=== PATIENT | male | born 1995 | race Caucasian/White ===

== ENCOUNTER 2018-12-01 07:22 | Observation (INO) | payer MEDICAID, OTHER ==
[~2018-12-01] VITALS: Ht 182.9 cm; Wt 72.5 kg
[2018-12-01 07:49] LABS: BASOPHILS # (AUTO) 0.02 x10^3/uL (0-0.1); BASOPHILS % (AUTO) 0 % (0-1); EOSINOPHILS # (AUTO) 0.16 x10^3/uL (0-0.4); EOSINOPHILS % (AUTO) 2 % (1-7); LYMPHOCYTES # (AUTO) 2.31 x10^3/uL (1-3.4); LYMPHOCYTES % (AUTO) 23 % (22-44); MD NO; MEAN CORPUSCULAR HEMOGLOBIN 31.3 pg (27.5-34.5); MEAN CORPUSCULAR HGB CONC 34.2 g/dL (33.2-36.2); MEAN CORPUSCULAR VOLUME 91.6 fL (81-97); MEAN PLATELET VOLUME 8.1 fL (7.4-10.4); MONOCYTES % (AUTO) 5 % (2-9); NEUTROPHILS # (AUTO) 7.16 x10^3/uL (1.8-6.8); NEUTROPHILS % (AUTO) 71 % (42-75); PLATELET COUNT 381 x10^3/uL (130-400); RED BLOOD COUNT 4.66 x10^6/uL (4.38-5.82)
[2018-12-01] MEDS ORDERED: KETOROLAC 30 MG/1 ML ONE (08:00)
[2018-12-01] MEDS ORDERED: KETOROLAC 30 MG/1 ML IM ONE (08:00)
[2018-12-01] MEDS ORDERED: PLEASE ENTER ALLERGIES MC SCH (08:00)
[2018-12-01 08:01] LABS: ANION GAP 6 mmol/L (5-15); CALCIUM 8.9 mg/dL (8.5-10.1); CHLORIDE 109 mmol/L (98-107); CREATININE 1.09 mg/dL (0.7-1.3)
[2018-12-01 08:04] LABS: TROPONIN I < 0.015 ng/mL (0.000-0.045)
[2018-12-01] MEDS: NALOXONE 0.4 MG/ML, 1ML IVPush PRN ×2 (08:24→09:40)
[2018-12-01] MEDS ORDERED: KETOROLAC 30 MG/1 ML IVPush ONE (08:30)
--- NOTE | 2018-12-01 08:46 | NUR ---
pt had period of de sat to 80 on ra. 2 lpm nc placed and 0.4 narcan admin per order.
--- NOTE | 2018-12-01 09:34 | NUR ---
pt resps at 6 bpm o2 at 2 lpm via nc. provider made aware.
--- NOTE | 2018-12-01 09:40 | NUR ---
NARCAN ADMIN PER ORDER. RESP NOW INCREASED TO 12 PER MINUTE.
--- NOTE | 2018-12-01 11:54 | NUR ---
pt placed back on 1 lpm nc due to ra of 85 while sleeping.
[2018-12-01] MEDS ORDERED: NALOXONE 0.4 MG/ML, 1ML ONE (12:36)
--- NOTE | 2018-12-01 12:52 | NUR ---
pt resting in bed. on 0.25 lpm of 02 via nc. resps even and unlabored. rate of 12 bpm
--- NOTE | 2018-12-01 13:40 | NUR ---
assumed care of pt while primary rn on lunch. pt eating lunch and awake. hospitalist at bedside. received bed and will call report.
--- NOTE | 2018-12-01 13:56 | NUR ---
report called to ebenezer cash. pt will then be transferred to the floor.
[2018-12-01] MEDS: NICOTINE 21 MG/24 HR PATCH.TD24 TD SCH (14:00)
[2018-12-01] MEDS ORDERED: ACETAMINOPHEN 325 MG TABLET PO PRN (14:00)
[2018-12-01] MEDS ORDERED: POLYETHYLENE GLYCOL 17 GM PACKET PO PRN (14:00)
[2018-12-01] MEDS ORDERED: LIDODERM 5% PATCH TD PRN (14:00)
[2018-12-01] MEDS ORDERED: ONDANSETRON 2MG/ML, 2ML IVPush PRN (14:00)
[2018-12-01] MEDS ORDERED: ONDANSETRON ODT 4 MG PO PRN (14:00)
[2018-12-01] MEDS ORDERED: TEMAZEPAM 15 MG CAPSULE PO PRN (14:00)
[2018-12-01] MEDS ORDERED: BISACODYL 10 MG SUPP PR PRN (14:00)
[2018-12-01] MEDS ORDERED: hydrALAzine 20 MG/ML, 1ML IVPush PRN (14:00)
[2018-12-01] MEDS ORDERED: KETOROLAC 30 MG/1 ML IV PRN (14:00)
[2018-12-01] MEDS ORDERED: DOCUSATE 100 MG CAPSULE PO PRN (14:00)
--- NOTE | 2018-12-01 14:02 | NUR ---
change of bed status. pt will go to med tele instead of medical. awaiting bed.
[2018-12-01 14:22] LABS: HCT (SEDRATE) 45.8 % (39.2-51.8)
[2018-12-01 14:28] LABS: ANION GAP 6 mmol/L (5-15); CHLORIDE 107 mmol/L (98-107); CREATININE 0.98 mg/dL (0.7-1.3)
[2018-12-01] MEDS ORDERED: CLINDAMYCIN 300 MG CAPSULE PO SCH (14:30)
[2018-12-01 14:32] LABS: FREE T4 (FREE THYROXINE) 0.84 ng/dL (0.76-1.46); TROPONIN I 0.015 ng/mL (0.000-0.045)
[2018-12-01 14:35] LABS: BASOPHILS # (AUTO) 0.04 x10^3/uL (0-0.1); BASOPHILS % (AUTO) 0 % (0-1); EOSINOPHILS # (AUTO) 0.06 x10^3/uL (0-0.4); EOSINOPHILS % (AUTO) 1 % (1-7); LYMPHOCYTES # (AUTO) 2.14 x10^3/uL (1-3.4); LYMPHOCYTES % (AUTO) 17 % (22-44); MD NO; MEAN CORPUSCULAR HEMOGLOBIN 31.1 pg (27.5-34.5); MEAN CORPUSCULAR HGB CONC 33.4 g/dL (33.2-36.2); MEAN CORPUSCULAR VOLUME 93.2 fL (81-97); MEAN PLATELET VOLUME 8.3 fL (7.4-10.4); MONOCYTES # (AUTO) 0.57 x10^3/uL (0.2-0.8); MONOCYTES % (AUTO) 5 % (2-9); NEUTROPHILS % (AUTO) 77 % (42-75); PLATELET COUNT 408 x10^3/uL (130-400); RED BLOOD COUNT 4.91 x10^6/uL (4.38-5.82); RED CELL DISTRIBUTION WIDTH 13.1 % (9.4-14.8)
[2018-12-01 14:41] VITALS: BP 128/94
[2018-12-01] MEDS ORDERED: VITA1TAB65 PO (14:47)
[2018-12-01] MEDS ORDERED: ASCO10004 PO (14:47)
[2018-12-01] MEDS ORDERED: LABETALOL 20 MG/4 ML IV PRN (15:00)
[2018-12-01] MEDS: ENOXAPARIN 40 MG/0.4 ML SQ SCH (15:45)
[2018-12-01 16:29] LABS: AMPHETAMINE SCREEN, URINE Positive (Negative); BARBITURATE SCREEN, URINE Negative (Negative); BENZODIAZEPINE SCREEN, URINE Negative (Negative); CANNABINOID SCREEN, URINE Negative (Negative); COCAINE SCREEN, URINE Negative (Negative); METHADONE SCREEN, URINE Negative (Negative); OPIATE SCREEN, URINE Positive (Negative)
[2018-12-01] MEDS ORDERED: DIPHENHYDRAMINE 50 MG CAPSULE PO ONE (18:30)
[2018-12-01 20:03] LABS: TROPONIN I < 0.015 ng/mL (0.000-0.045)
[2018-12-01 20:25] VITALS: BP 117/73
[2018-12-01] MEDS: FAMOTIDINE 20 MG TABLET PO SCH (22:03)
[2018-12-02 00:39] VITALS: BP 102/64
[2018-12-02 06:30] LABS: BASOPHILS # (AUTO) 0.04 x10^3/uL (0-0.1); BASOPHILS % (AUTO) 0 % (0-1); EOSINOPHILS # (AUTO) 0.17 x10^3/uL (0-0.4); EOSINOPHILS % (AUTO) 2 % (1-7); LYMPHOCYTES # (AUTO) 2.48 x10^3/uL (1-3.4); LYMPHOCYTES % (AUTO) 26 % (22-44); MD NO; MEAN CORPUSCULAR HEMOGLOBIN 31.8 pg (27.5-34.5); MEAN CORPUSCULAR HGB CONC 33.9 g/dL (33.2-36.2); MEAN CORPUSCULAR VOLUME 93.7 fL (81-97); MEAN PLATELET VOLUME 8.3 fL (7.4-10.4); MONOCYTES # (AUTO) 0.47 x10^3/uL (0.2-0.8); MONOCYTES % (AUTO) 5 % (2-9); NEUTROPHILS # (AUTO) 6.48 x10^3/uL (1.8-6.8); NEUTROPHILS % (AUTO) 67 % (42-75); PLATELET COUNT 356 x10^3/uL (130-400); RED BLOOD COUNT 4.54 x10^6/uL (4.38-5.82); RED CELL DISTRIBUTION WIDTH 13.2 % (9.4-14.8)
[2018-12-02 06:41] LABS: CHLORIDE 106 mmol/L (98-107)
[2018-12-02 06:48] LABS: ANION GAP 5 mmol/L (5-15); CALCIUM 9.2 mg/dL (8.5-10.1); CHOLESTEROL, TOTAL 121 mg/dL (140-239); HDL CHOL % 34 % (26-37); HDL CHOLESTEROL (DIRECT) 41 mg/dL (40-60); LDL CHOLESTEROL,CALCULATED 54 mg/dL (54-169); LDL/HDL RATIO 1.3 (0.5-3.0); TRIGLYCERIDES 129 mg/dL (50-200); VLDL CHOLESTEROL 26 mg/dL (0-25)
[2018-12-02 07:07] VITALS: BP 104/68
[2018-12-02] MEDS: FAMOTIDINE 20 MG TABLET PO SCH (07:51)
[2018-12-02 13:29] VITALS: BP 102/74
[2018-12-02] MEDS ORDERED: AMOX1TAB64 PO (13:58)
[2018-12-02] MEDS: ENOXAPARIN 40 MG/0.4 ML SQ SCH (14:00)
[2018-12-02] MEDS: NICOTINE 21 MG/24 HR PATCH.TD24 TD SCH (14:00)
== END 2018-12-02 16:52 | disposition home or self-care (01) ==
LOC: ED 11:15 → INTOOBSV 13:16 → EDIP 13:16 → 4EST 14:38 → DCLOUNGE 12-02 16:45
PROVIDERS: ADMIT Hospitalist; ATTEND Hospitalist
DX: R07.89 Other chest pain (principal); R06.00 Dyspnea, unspecified; R42 Dizziness and giddiness; K02.9 Dental caries, unspecified; F15.90 Other stimulant use, unspecified, uncomplicated; Z72.0 Tobacco use
CPT/HCPCS: 36415; 71045; 80048; 80061; 80074; 80307; 84439; 84443; 84484; 85025; 85651; 87806; 93005; 96372; 96374; 96375; 96376; 99284; G0378; J1650; J1885; J2310; G0475

== ENCOUNTER 2020-03-03 03:59 | Emergency (ER) | payer MEDICAID ==
[~2020-03-03] VITALS: Ht 182.9 cm; Wt 68.0 kg
[~2020-03-03 03:59] MED LIST: AMOX1TAB64 PO; ASCO10004 PO; VITA1TAB65 PO
[2020-03-03 04:02] VITALS: BP 141/76
[2020-03-03] MEDS ORDERED: CEFTRIAXONE 250 MG IM ONE (04:30)
[2020-03-03] MEDS ORDERED: AZITHROMYCIN 500 MG TABLET PO ONE (04:30)
[2020-03-03] MEDS ORDERED: CEFTRIAXONE 250 MG ONE (04:30)
[2020-03-03] MEDS ORDERED: AZITHROMYCIN 250 MG TABLET ONE ×2 (04:30→04:31)
[2020-03-03] MEDS ORDERED: LIDOCAINE-MPF 1%, 2ML ONE (04:31)
== END 2020-03-03 05:10 | disposition home or self-care (01) ==
LOC: ED 04:45
DX: L98.9 Disorder of the skin and subcutaneous tissue, unspecified (principal); Z20.2 Contact with and (suspected) exposure to infections with a predominantly sexual mode of transmission
CPT/HCPCS: 36415; 86592; 86780; 96372; 99283; J0696